=== PATIENT | male | born 1970 | race Caucasian/White ===

== ENCOUNTER 2019-08-11 18:33 | Emergency (ER) | payer OTHER ==
[~2019-08-11] VITALS: Ht 165.1 cm; Wt 88.5 kg
[2019-08-11] MEDS ORDERED: NOHOMEMEDICATIONS (18:42)
[2019-08-11] MEDS ORDERED: NORCO 5-325 TA1 EAC1 PO (19:20)
[2019-08-11] MEDS ORDERED: IBUPROFEN 800800 M1 PO (19:20)
[2019-08-11 19:37] VITALS: BP 141/68
== END 2019-08-11 19:37 | disposition home or self-care (01) ==
LOC: M.ERS 18:33
DX: S60.132A Contusion of left middle finger with damage to nail, initial encounter (principal); W23.0XXA Caught, crushed, jammed, or pinched between moving objects, initial encounter; Y92.89 Other specified places as the place of occurrence of the external cause; Y93.89 Activity, other specified; Y99.8 Other external cause status